=== PATIENT | female | born 2000 | race Caucasian/White ===

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

== ENCOUNTER 2024-09-03 12:18 | Emergency (ER) | payer MEDICAID, OTHER ==
[2024-09-03] MEDS ORDERED: Amoxicillin/Clavulanate K 875-125 MG Tab PO ONE (12:19)
== END 2024-09-03 13:25 | disposition home or self-care (01) ==
LOC: FB.ED 12:18
DX: S51.852A Open bite of left forearm, initial encounter (principal); Z79.899 Other long term (current) drug therapy; W54.0XXA Bitten by dog, initial encounter
CPT/HCPCS: 12001; 99283; A9270